=== PATIENT | female | born 2000 | race Caucasian/White ===

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

== ENCOUNTER 2021-11-07 20:57 | Emergency (ER) | payer OTHER ==
[~2021-11-07] VITALS: Ht 160 cm; Wt 81.0 kg
[2021-11-07 21:17] VITALS: BP 125/79
--- NOTE | 2021-11-07 21:29 | ED Back Pain ---
General Stated Complaint: BACK PAIN History of Present Illness Date Seen by Provider: Nov 07, 2021 Time Seen by Provider: 21:27 Initial Comments Patient reports that she has had generalized back pain for the past week. Was seen earlier in the week by another provider and was told that she can take Naproxen. Has been taking that with minimal relief of symptoms. Boyfriend at bedside states that her back pain started after they were having sexual relations rougher then normal in multiple different positions. Denies numbness, tingling, weakness, bowel or bladder dysfunction. Reports that she had to leave work early tonight due to the pain. Timing/Duration: 1 Week Severity: Moderate Associated Symptoms: muscle spasms; No weakness, No numbness in legs/feet, No tingling in legs/feet; lower back pain (JOSELIN HOWARD APRN) Allergies and Home Medications Allergies Coded Allergies: Penicillins (Unverified Allergy, Mild, 12/13/08) Patient Home Medication List Home Medication List Reviewed: Yes (JOSELIN HOWARD APRN) Cyclobenzaprine HCl (Cyclobenzaprine HCl) 10 Mg Tablet, 10 MG PO Q8H PRN for SPASMS Prescribed by: Joselin Howard on 11/07/212145 Review of Systems Constitutional: no symptoms reported Respiratory: no symptoms reported Gastrointestinal: no symptoms reported Genitourinary: no symptoms reported Musculoskeletal: back pain, muscle pain, muscle stiffness Skin: No pruritus, No rash (JOSELIN HOWARD APRN) All Other Systems Reviewed Negative Unless Noted: Yes (JOSELIN HOWARD APRN) Past Xcckjtb-Lnfjsd-Rawluw Hx Immunizations Up To Date PED Vaccines UTD: Yes (JOSELIN HOWARD APRN) Family Medical History Reviewed Nursing Family Hx (JOSELIN HOWARD APRN) Physical Exam Vital Signs Vital Signs - First Documented 11/07/21 21:17 Temp 36.7 Pulse 90 Resp 18 B/P (MAP) 125/79 (94) Pulse Ox 98 O2 Delivery Room Air (NERY GUERRERO MD) Vital Signs Capillary Refill : (JOSELIN HOWARD APRN) Height, Weight, BMI Height: 5'1.00" Weight: 140lbs. oz. 63.800440tm; 21.09 BMI Method:Stated General Appearance: No Apparent Distress, WD/WN Neck: Full Range of Motion, Normal Inspection, Non Tender, Supple Cardiovascular: Regular Rate, Rhythm, No Edema Respiratory: Chest Non Tender, Lungs Clear, Normal Breath Sounds, No Accessory Muscle Use, No Respiratory Distress Back: No Vertebral Tenderness, Muscle Spasm (generalized pain throughout the back, knots and areas of muscle spasms noted throughout, no red flag findings) Neurologic/Psychiatric: Alert, Oriented x3, No Motor/Sensory Deficits, Normal Mood/Affect, copy center specialist II-XII Norm as Tested Skin: Normal Color, Warm/Dry (JOSELIN HOWARD APRN) Progress/Results/Core Measures Results/Orders Vital Signs/I&O 11/07/21 21:17 Temp 36.7 Pulse 90 Resp 18 B/P (MAP) 125/79 (94) Pulse Ox 98 O2 Delivery Room Air (NERY GUERRERO MD) Progress Progress Note : Progress Note Exam consistent with muscle spasm. Will give muscle relaxer that she can take at home. Will give oral dose here. Home instructions reviewed with patient along with reasons to return to the ER. No red flag findings appreciated on exam. (JOSELIN HOWARD APRN) Departure Impression Primary Impression: Back strain Qualified Codes: S39.012A - Strain of muscle, fascia and tendon of lower back, initial encounter Disposition: HOME, SELF-CARE Condition: Stable Departure-Patient Inst. Decision time for Depature: 21:45 (JOSELIN HOWARD APRN) Referrals: NO,LOCAL PHYSICIAN (PCP/Family) Primary Care Physician Patient Instructions: Back Muscle Strain (DC) Add. Discharge Instructions: 1. Home and rest. 2. Push fluids. 3. Alternate Tylenol/Ibuprofen as needed for pain. 4. Consider using heating pad to areas of pain. 5. Cyclobenzaprine as needed for pain. No driving while taking this medication as this medication can cause drowsiness. 6. Follow up with PCP as needed. 7. Return here if worse or concerns. Scripts Cyclobenzaprine HCl (Cyclobenzaprine HCl) 10 Mg Tablet 10 MG PO Q8H PRN for SPASMS, #15 TAB 0 Refills Prov: JOSELIN HOWARD APRN 11/07/21 Work/School Note: Work Release Form Date Seen in the Emergency Department: Nov 07, 2021 Return to Work: Nov 10, 2021 Restrictions: No Restrictions ATTENDING PHYSICIAN NOTE: I was physically present as attending physician in the emergency department during the care of this patient, but I was not directly involved in the decision making or delivery of care for this patient. (NERY GUERRERO MD) JOSELIN HOWARD APRN Nov 07, 2021 21:29 NERY GUERRERO MD Nov 09, 2021 06:54
[2021-11-07] MEDS ORDERED: CYCLOBENZAPRINE 10 MG (FLEXERIL) TAB PO SCH (21:45)
[2021-11-07] MEDS ORDERED: CYCL10TA25 PO (21:46)
== END 2021-11-07 22:02 | disposition home or self-care (01) ==
LOC: EDUNIT# 20:57 → ER 21:00
DX: S39.012A Strain of muscle, fascia and tendon of lower back, initial encounter (principal); X58.XXXA Exposure to other specified factors, initial encounter
CPT/HCPCS: 99283